=== PATIENT | female | born 1995 | race Caucasian/White ===

== ENCOUNTER 2024-05-11 00:58 | Emergency (ER) | payer BC ==
[~2024-05-11] VITALS: Ht 172.7 cm; Wt 103.0 kg
[2024-05-11 01:11] VITALS: BP_SYST 139; PULSE 89; RESP 18; TEMP 97; O2SAT 98
[2024-05-11 01:37] VITALS: BP_SYST 134; RESP 18; TEMP 98.3
[2024-05-11] MEDS ORDERED: IPRATROPIUM/ALBUTEROL SULFATE 3 ML AMPUL.NEB (DUONEB) ONE (02:11)
[2024-05-11] MEDS: IPRATROPIUM/ALBUTEROL SULFATE 3 ML AMPUL.NEB (DUONEB) INH ONE (02:22)
[2024-05-11] MEDS ORDERED: ALBMDI INH (02:28)
[2024-05-11] MEDS ORDERED: ZIT250 PO (02:28)
[2024-05-11 02:41] VITALS: PULSE 84; O2SAT 97
== END 2024-05-11 02:40 | disposition home or self-care (01) ==
LOC: SED 00:58
DX: J18.9 Pneumonia, unspecified organism (principal); R06.02 Shortness of breath
CPT/HCPCS: 71045; 81025; 94640; 99283